=== PATIENT | female | born 1960 | race Two or more races ===

== ENCOUNTER 2017-05-31 16:14 | Emergency (ER) | payer OTHER ==
[~2017-05-31] VITALS: Ht 144.8 cm; Wt 61.2 kg
[2017-05-31 16:27] VITALS: BP 133/89
[2017-05-31] MEDS ORDERED: WART REMOVER1 EAC1 TP (17:36)
[2017-05-31 17:49] VITALS: BP 126/78
--- NOTE | 2017-06-01 09:13 | Diagnostic Imaging Report ---
Indication: PAIN, injury right fifth digit Technique: 3 views right hand Comparison: none Findings: There is degenerative narrowing of the second through fifth distal interphalangeal joints. There is mild narrowing and proliferative change of the first interphalangeal joint. There is some soft tissue swelling about the fifth digit. No acute fractures. No dislocations. There is a small erosion versus cyst in the head of the second middle phalanx. The remainder the joint spaces are preserved. Impression: No acute bony trauma Degenerative changes, as described Small bone cyst versus periarticular erosion involving the head of the second middle phalanx
--- NOTE | 2017-06-01 12:24 | Emergency Room Report ---
History of Present Illness General Chief Complaint: Pain Source: Patient Present Illness HPI The patient is a 56-year-old female presenting for right pinky pain. She states that she noticed this 2 weeks ago. She is unsure if she injured it in any way. She noticed a growth which is slightly tender. Described as a 4/10 dull ache. Does not radiate. Worse with touch. She denies any numbness or tingling. She states she tried to "pop it" yesterday but only blood came out. She denies any other symptoms Allergies: Coded Allergies: GUAIFENESIN (Verified Allergy, Unknown, 05/31/17) Patient History Past Medical History: see triage record Pertinent Family History: none Last Menstrual Period: none Now: No : 0 Para: 0 Reviewed Nursing Documentation: PMH: Agreed, PSxH: Agreed Nursing Documentation-PMH Past Medical History: No Stated History Review of Systems All Other Systems: negative except mentioned in HPI Physical Exam Vital Signs Date Time Temp Pulse Resp B/P (MAP) Pulse Ox O2 Delivery O2 Flow Rate FiO2 05/31/17 16:19 97.9 78 16 133/89 98 Room Air Sp02 EP Interpretation: reviewed, normal General Appearance: no apparent distress, alert, GCS 15, non-toxic Head: normocephalic, atraumatic Eyes: bilateral eye normal inspection, bilateral eye PERRL ENT: hearing grossly normal, normal pharynx, no angioedema, normal voice Musculoskeletal: back normal, gait/station normal, normal range of motion, non- tender Neurologic: alert, oriented x3, responsive, motor strength/tone normal, sensory intact, speech normal Psychiatric: judgement/insight normal, memory normal, mood/affect normal, no suicidal/homicidal ideation Skin: other - R 5th finger: Circular, 1cm in diameter thickened lesion. Normal color. No fluctuance. Medical Decision Making PA Attestation Dr. Terry is my supervising physician. Patient management was discussed with my supervising physician Diagnostic Impression: Primary Impression: Finger pain, right ER Course The patient is a 56-year-old female presenting for right pinky pain DDx considered but not limited to: abscess, wart, paronychia, fracture, sprain, among others PE: R 5th finger: over the DIPJ. Circular, 1cm in diameter thickened lesion. Normal color. No fluctuance. Full AROM intact. Xray of hand unremarkable for acute findings. The patient is discharged home and will followup with primary doctor. ER precautions are given Other X-Ray Diagnostic Results Other X-Ray Diagnostic Results : X-Ray ordered: R hand # of Views/Limited Vs Complete: 3 View, Complete Indication: Pain EP Interpretation: Yes PA Xray: Interpretation reviewed, by supervising MD, and agrees with findings. Interpretation: no dislocation, no soft tissue swelling, no fractures Impression: No acute disease Electronically Signed by: Radames Gomez PA-C Last Vital Signs Date Time Temp Pulse Resp B/P (MAP) Pulse Ox O2 Delivery O2 Flow Rate FiO2 05/31/17 17:49 97.9 16 126/78 98 Room Air 05/31/17 16:19 78 Status: improved Disposition: HOME, SELF-CARE Condition: Improved Scripts Salicylic Acid (WART REMOVER) 1 Each Adh..patch 1 EACH TP EVERY OTHER DAY, #40 PATCH Prov: RADAMES GOMEZ 05/31/17 Patient Instructions: [place] Additional Instructions: I discussed my findings with the patient. All questions and concerns have been answered. Treatment and medication compliance have been addressed. I advised the patient that they need to follow up with PMD in 3-5 days. Return to ED if symptoms worsen, new symptoms arise, or if needed for any reason. Patient verbalized understanding of discharge instructions. RADAMES GOMEZ Jun 01, 2017 12:24
== END 2017-05-31 17:51 | disposition home or self-care (01) ==
LOC: EMR 17:00
DX: M25.541 Pain in joints of right hand (principal); L98.8 Other specified disorders of the skin and subcutaneous tissue; Z88.8 Allergy status to other drugs, medicaments and biological substances
CPT/HCPCS: 99283

== ENCOUNTER 2017-07-04 19:53 | Emergency (ER) | payer OTHER ==
[~2017-07-04] VITALS: Ht 144.8 cm; Wt 60.3 kg
[~2017-07-04 19:53] MED LIST: WART REMOVER1 EAC1 TP
[2017-07-04 20:20] VITALS: BP 133/78
[2017-07-04] MEDS ORDERED: Lidocaine 1% Plain 30 ml INJ ONE (20:30)
[2017-07-04] MEDS ORDERED: Bacitracin Oint UD TOPIC ONE (20:30)
[2017-07-04 20:31] LABS: APPEARANCE,URINE CLEAR; KETONES,URINE NEGATIVE (NEGATIVE); LEUKOCYTE ESTERASE ,URINE NEGATIVE (NEGATIVE); NITRITE,URINE NEGATIVE (NEGATIVE); PH,URINE 7 (4.5-8.0); PROTEIN,URINE NEGATIVE (NEGATIVE); UROBILINOGEN,URINE NORMAL MG/DL (0.0-1.0)
[2017-07-04] MEDS ORDERED: BACITRACIN15 GM TOPIC (21:05)
[2017-07-04] MEDS ORDERED: CEPHALEXIN500 MG ORAL (21:05)
[2017-07-04] MEDS ORDERED: PHENAZOPYRIDIN100 MG ORAL (21:05)
[2017-07-04 21:18] VITALS: BP 121/76
--- NOTE | 2017-07-04 23:09 | Emergency Room Report ---
History of Present Illness General Chief Complaint: Female Urogenital Problems Source: Patient Present Illness HPI The patient is a 56-year-old female presenting for possible very tract infection. She states that she has had dysuria for the past 3 days. Pain is an 8/10 burning sensation. Does not radiate from vaginal area. She states that she has had UTI in the past and this feels the same. She denies other symptoms including abdominal pain, back pain, fever, chills, hematuria, increased frequency, incontinence, vaginal discharge. She is also complaining of a lump she noticed on her pinky. She was seen in this emergency department recently for the same complaint and states that the treatment did not help. She denies any pain. She denies any injury to the area. Allergies: Coded Allergies: DIPHENHYDRAMINE (Verified Allergy, Unknown, 07/04/17) GUAIFENESIN (Verified Allergy, Unknown, 05/31/17) Patient History Past Medical History: see triage record Pertinent Family History: none Last Menstrual Period: none Now: No Reviewed Nursing Documentation: PMH: Agreed, PSxH: Agreed Nursing Documentation-PMH Past Medical History: No Stated History Review of Systems All Other Systems: negative except mentioned in HPI Physical Exam Vital Signs Date Time Temp Pulse Resp B/P (MAP) Pulse Ox O2 Delivery O2 Flow Rate FiO2 07/04/17 19:59 97.7 65 18 133/78 98 07/04/17 21:18 Room Air Sp02 EP Interpretation: reviewed, normal General Appearance: no apparent distress, alert, GCS 15, non-toxic Head: normocephalic, atraumatic Eyes: bilateral eye normal inspection, bilateral eye PERRL ENT: hearing grossly normal, normal pharynx, no angioedema, normal voice Neck: full range of motion, supple/symm/no masses Gastrointestinal: normal bowel sounds, non tender, soft, non-distended, no guarding, no rebound Genitourinary: normal inspection, no CVA tenderness Musculoskeletal: back normal, gait/station normal, normal range of motion, non- tender, other - R 5th digit DIPJ has 1cm in diameter circular, fluctuant mass. Non tender Neurologic: alert, oriented x3, responsive, motor strength/tone normal, sensory intact, speech normal Psychiatric: judgement/insight normal, memory normal, mood/affect normal, no suicidal/homicidal ideation Skin: normal color, no rash, warm/dry, well hydrated Lymphatic: no adenopathy Procedures Incision and Drainage Incision and Drainage : Consent: Verbal Site: R 5th finger Blade Size: 11 I & D Procedure: betadine prep, sterile drapes applied Wound Location: upper extremity Wound's Depth, Shape: superficial, linear Wound Length (cm): 1 Wound Explored: clean Anesthesia: 1% Lidocaine Volume Anesthetic (ccs): 4 Splint Applied?: No Sling Applied?: No Patient Tolerated: Well Complications: None Medical Decision Making PA Attestation Dr. Chopra is my supervising physician. Patient management was discussed with my supervising physician Diagnostic Impression: Primary Impression: Ganglion cyst of joint of finger of right hand Additional Impression: Dysuria ER Course The patient is a 56-year-old female presenting for possible UTI as well as right fifth finger swelling Differential diagnosis considered but not limited to: UTI, vaginitis, pyelonephritis, pyelonephrosis, incontinence Ddx considered include but not limited to sprain/strain, fracture, contusion, paronychia, ganglion cyst, arthritis PE: Afebrile. NAD Abdomen is soft and nontender. No CVA tenderness R 5th digit DIPJ has 1cm in diameter circular, fluctuant mass.Nontender. No skin color changes. Betadine prep was used to clean the skin and surrounding area. One percent lidocaine without epinephrine was used for digital block. A #11 blade was used to make an incision of the lesion Once the incision was made, clear fluid was expressed with blood. The wound was then cleaned and sterile dressing applied. Urinalysis shows no signs of infection. She was told that this is most likely a cyst that will return in time. She needs to follow up with her primary doctor for further treatment and evaluation. She is given prescription for Keflex and Pyridium ER precautions are given Labs Test 07/04/17 20:05 Urine Color Pale yellow Urine Appearance Clear Urine pH 7 (4.5-8.0) Urine Specific [place] 1.005 (1.005-1.035) Urine Protein Negative (NEGATIVE) Urine Glucose (UA) Negative (NEGATIVE) Urine Ketones Negative (NEGATIVE) Urine Occult Blood Negative (NEGATIVE) Urine Nitrite Negative (NEGATIVE) Urine Bilirubin Negative (NEGATIVE) Urine Urobilinogen Normal MG/DL (0.0-1.0) Urine Leukocyte Esterase Negative (NEGATIVE) Lab Results Impression No signs of infection Last Vital Signs Date Time Temp Pulse Resp B/P (MAP) Pulse Ox O2 Delivery O2 Flow Rate FiO2 07/04/17 21:18 64 16 121/76 99 Room Air 07/04/17 19:59 97.7 Status: improved Disposition: HOME, SELF-CARE Condition: Improved Scripts Cephalexin* (KEFLEX*) 500 Mg Capsule 500 MG ORAL EVERY 12 HOURS, #14 CAP 0 Refills Prov: ROLANDO GOMEZ.A. 07/04/17 Bacitracin (Bacitracin) 28.4 Gm Oint...g. 1 APPLIC TOPIC THREE TIMES A DAY, #28 GM Prov: ROLANDO GOMEZ.A. 07/04/17 Phenazopyridine Hcl* (PYRIDIUM*) 100 Mg Tablet 100 MG ORAL THREE TIMES A DAY, #10 TAB Prov: ROLANDO GOMEZ P.A. 07/04/17 Patient Instructions: Dysuria, Ganglion Cyst Additional Instructions: I discussed my findings with the patient. All questions and concerns have been answered. Treatment and medication compliance have been addressed. I advised the patient that they need to follow up with PMD in 3-5 days. Return to ED if symptoms worsen, new symptoms arise, or if needed for any reason. Patient verbalized understanding of discharge instructions. The patient was informed that the cyst on the finger will most likely have to have surgery for long-term removal. ROLANDO GOMEZ Jul 04, 2017 23:09
== END 2017-07-04 21:20 | disposition home or self-care (01) ==
LOC: EMR 20:30
DX: R30.0 Dysuria (principal); M67.441 Ganglion, right hand; Z88.8 Allergy status to other drugs, medicaments and biological substances
CPT/HCPCS: 81003; 99284; J2001

== ENCOUNTER 2017-07-17 17:45 | Emergency (ER) | payer OTHER ==
[~2017-07-17] VITALS: Ht 149.9 cm; Wt 72.6 kg
[~2017-07-17 17:45] MED LIST changes: +BACITRACIN15 GM TOPIC; +CEPHALEXIN500 MG ORAL; +PHENAZOPYRIDIN100 MG ORAL
--- NOTE | 2017-07-17 19:26 | Emergency Room Report ---
History of Present Illness General Chief Complaint: General Complaint Source: Patient Present Illness HPI 56-year-old female presents emergency department complaining of 5/10 in severity epigastric abdominal pain that she describes as burning sensation in addition to feeling increased distention after eating, vomiting nonbloody vomitus since yesterday. Patient reports history of H. pylori and gastritis approximately 3 years ago which presented similarly. Patient also reports cough with nasal congestion x4 days. denies Dark tarry stools, or blood in the stool. Patient denies constipation or diarrhea. denies dysuria, urgency, hematuria or frequency. Denies CP, Palpitations, LOC, AMS, dizziness, Changes in Vision, Sensation, paresthesias, or a sudden severe headache. Allergies: Coded Allergies: DIPHENHYDRAMINE (Verified Allergy, Unknown, 07/04/17) GUAIFENESIN (Verified Allergy, Unknown, 05/31/17) Patient History Past Medical History: see triage record Past Surgical History: none Pertinent Family History: none Immunizations: UTD Reviewed Nursing Documentation: PMH: Agreed, PSxH: Agreed Nursing Documentation-PMH Past Medical History: No Stated History Review of Systems All Other Systems: negative except mentioned in HPI Physical Exam Vital Signs Date Time Temp Pulse Resp B/P (MAP) Pulse Ox O2 Delivery O2 Flow Rate FiO2 07/17/17 18:01 98.4 91 20 98 Room Air Sp02 EP Interpretation: reviewed, normal General Appearance: no apparent distress, alert, GCS 15, non-toxic Head: normocephalic, atraumatic Eyes: bilateral eye normal inspection, bilateral eye PERRL ENT: hearing grossly normal, normal pharynx, no angioedema, normal voice Neck: full range of motion, supple/symm/no masses Respiratory: chest non-tender, lungs clear, normal breath sounds, speaking full sentences Cardiovascular #1: regular rate, rhythm, no edema Gastrointestinal: normal bowel sounds, soft, non-distended, no guarding, no rebound, tenderness - some mild ttp to deep palpation in epigastric area. , other - some mild ttp to deep palpation in epigastric area. , Negative [place] signs, Negative MacBurney's sign, Negative Rosvigns Sign, Negative Psoas, No Peritoneal signs. Rectal: deferred Genitourinary: normal inspection, no CVA tenderness Musculoskeletal: back normal, gait/station normal, normal range of motion, non- tender Neurologic: alert, oriented x3, responsive, motor strength/tone normal, sensory intact, speech normal Skin: normal color, no rash, warm/dry, well hydrated Medical Decision Making PA Attestation Dr. Chopra is my supervising Physician whom patient management has been discussed with. Diagnostic Impression: Primary Impression: Nausea & vomiting Qualified Codes: R11.2 - Nausea with vomiting, unspecified Additional Impression: Epigastric abdominal pain ER Course 56-year-old female presents emergency department complaining of 5/10 in severity epigastric abdominal pain that she describes as burning sensation in addition to feeling increased distention after eating, vomiting nonbloody vomitus since yesterday. Patient reports history of H. pylori and gastritis approximately 3 years ago which presented similarly. Patient also reports cough with nasal congestion x4 days. denies Dark tarry stools, or blood in the stool. Patient denies constipation or diarrhea. denies dysuria, urgency, hematuria or frequency. Denies CP, Palpitations, LOC, AMS, dizziness, Changes in Vision, Sensation, paresthesias, or a sudden severe headache. Ddx considered but are not limited to GE, colitis, acute appy, SBO, gastritis, Vital signs: pt. is afebrile, H&PE are most consistent with Gastritis , no evidence to suggest acute abdomen on physical exam, no RUQ tenderness, not actively vomiting in ED. ORDERS: -None required at this time, the dx is clinical. ED INTERVENTIONS: -Zofran 4mg -Mylanta -Pepcid -Patient had improvement of symptoms upon reevaluation after above interventions. -pt able to tolerate oral fluids. d/w pt. conservative treatment, and to follow up with a primary care provider. pt given a list of primary care clinics for follow up. d/w pt. to return to the ED with worsening or new symptoms. DISCHARGE: At this time pt. is stable for d/c to home. Will provide printed patient care instructions, and any necessary prescriptions. Care plan and follow up instructions have been discussed with the patient prior to discharge. Last Vital Signs Date Time Temp Pulse Resp B/P (MAP) Pulse Ox O2 Delivery O2 Flow Rate FiO2 07/17/17 18:10 98.4 20 98 Room Air 07/17/17 18:01 91 Disposition: HOME, SELF-CARE Condition: Stable Scripts Mag Hydrox/Al Hydrox/Simeth (ALUM-MAG HYDROXIDE-SIMETH LIQ) 360 Ml Oral.susp 20 ML PO TID, #360 ML Prov: Nirmala Paulino 07/17/17 Ondansetron Odt* (ZOFRAN ODT*) 4 Mg Tab.rapdis 4 MG ORAL Q6H Y for Nausea & Vomiting, #30 TAB Prov: Nirmala Paulino. 07/17/17 Ranitidine Hcl* (ZANTAC*) 150 Mg Tablet 150 MG ORAL TWICE A DAY, #30 TAB Prov: Nirmala Paulino. 07/17/17 Patient Instructions: Abdominal Pain, Adult Additional Instructions: Take medications as directed. Follow up with a for PCP for referral to see GI SPECIALIST in 3-5 days, even if your symptoms have resolved. --Please review list of primary care clinics, if you do not already have a primary care provider Return sooner to ED if new symptoms occur, or current symptoms become worse. - Please note that this Emergency Department Report was dictated using Orthoconeframe cleaner technology software, occasionally this can lead to erroneous entry secondary to interpretation by the dictation equipment. Nirmala Paulino Jul 17, 2017 19:25
[2017-07-17] MEDS ORDERED: ZOFRAN ODT4 MG ORAL (19:27)
[2017-07-17] MEDS ORDERED: ALUM-MAG HYDRO360 ML PO (19:27)
[2017-07-17] MEDS ORDERED: RANITIDINE HCL150 MG ORAL (19:27)
[2017-07-17 19:42] VITALS: BP 129/78
== END 2017-07-17 19:42 | disposition home or self-care (01) ==
LOC: EMR 18:17
DX: R11.2 Nausea with vomiting, unspecified (principal); R10.13 Epigastric pain; R05 Cough; R09.81 Nasal congestion
CPT/HCPCS: 99283

== ENCOUNTER 2018-03-28 17:21 | Emergency (ER) | payer OTHER ==
[~2018-03-28] VITALS: Ht 144.8 cm; Wt 62.6 kg
[~2018-03-28 17:21] MED LIST changes: +ALUM-MAG HYDRO360 ML PO; +RANITIDINE HCL150 MG ORAL; +ZOFRAN ODT4 MG ORAL
[2018-03-28 17:53] VITALS: BP 129/71
--- NOTE | 2018-03-28 18:47 | Emergency Room Report ---
History of Present Illness General Chief Complaint: Pain Source: Patient Present Illness HPI 57 YO Female presents to the ED c/o left ankle sprain x 5 days, swelling intermittently. pt. reports pain is worse with walking. swelling relieved with elevation. 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 No appreciable trauma or fall. posterior lateral swelling and ttp, no erythema no fevers. pt. denies paresthesias or skin color changes. Denies hx of HTN. Allergies: Coded Allergies: DIPHENHYDRAMINE (Verified Allergy, Unknown, 07/04/17) GUAIFENESIN (Verified Allergy, Unknown, 05/31/17) Patient History Past Medical History: see triage record Past Surgical History: none Pertinent Family History: none Now: No Reviewed Nursing Documentation: PMH: Agreed; PSxH: Agreed Nursing Documentation-PMH Past Medical History: No Stated History Review of Systems All Other Systems: negative except mentioned in HPI Physical Exam Vital Signs Date Time Temp Pulse Resp B/P (MAP) Pulse Ox O2 Delivery O2 Flow Rate FiO2 03/28/18 17:36 98.4 73 20 129/71 99 Room Air 98.4 Sp02 EP Interpretation: reviewed, normal General Appearance: no apparent distress, alert, GCS 15, non-toxic Head: normocephalic, atraumatic ENT: hearing grossly normal, normal voice Neck: full range of motion Respiratory: lungs clear, normal breath sounds, speaking full sentences Cardiovascular #1: regular rate, rhythm, no edema Musculoskeletal: back normal, gait/station normal, normal range of motion, other - posterior ankle ttp, and some ttp and swelling noted on the lateral posterior aspect, no bruises, erythema or obvious deformities, no increased laxity or warmth. some pain on plantar aspect near heel. Neurologic: alert, oriented x3, responsive, motor strength/tone normal, sensory intact, speech normal, grossly normal Psychiatric: judgement/insight normal Skin: normal color, no rash, warm/dry, well hydrated Lymphatic: no adenopathy Medical Decision Making PA Attestation Dr. zhong is my supervising Physician whom patient management has been discussed with. Diagnostic Impression: Primary Impression: Ankle sprain Qualified Codes: S93.402A - Sprain of unspecified ligament of left ankle, initial encounter Additional Impression: Achilles tendinitis Qualified Codes: M76.62 - Achilles tendinitis, left leg ER Course 57 YO Female presents to the ED c/o left ankle sprain x 5 days, swelling intermittently. pt. reports pain is worse with walking. swelling relieved with elevation. 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 No appreciable trauma or fall. posterior lateral swelling and ttp, no erythema no fevers. pt. denies paresthesias or skin color changes. Denies hx of HTN. Ddx considered but are not limited to Fracture, dislocation, contusion, Sprain/ Strain/Spasm, Achilles tendinitis, plantar fasciitis, peripheral edema just to name a few Vital signs: are WNL, pt. is afebrile H&PE are most consistent with musculoskeletal injury will perform imaging - highly suspect Achilles tendinitis, overuse syndrome. There is no evidence of infectious process. ORDERS: - X-ray left ankle - negative for fx, Dislocation, or significant soft tissue injury, per preliminary read in ED, and signed by QUIRINO Paulino, my supervising physician has reviewed, and agrees with my interpretation. ED INTERVENTIONS: - Evan wrap applied by eye technician. Pt. remains neurovascularly intact. -I do not identify an emergent condition at this time. With current presentation , pt. is stable for close outpatient follow up and conservative treatment. D/ w pt. to return promptly to ED with worsening or new symptoms.- Pt. verbalizes understanding and agreement with proposed treatment plan.proposed treatment plan. DISCHARGE: At this time pt. is stable for d/c to home. Will provide printed patient care instructions, and any necessary prescriptions. Care plan and follow up instructions have been discussed with the patient prior to discharge. Other X-Ray Diagnostic Results Other X-Ray Diagnostic Results : X-Ray ordered: LEft ankle # of Views/Limited Vs Complete: 3 View Indication: Pain EP Interpretation: Yes QUIRINO Xray: Interpretation reviewed, by supervising MD, and agrees with findings. Interpretation: no dislocation, no soft tissue swelling, no fractures Impression: No acute disease Electronically Signed by: Nirmala Paulino PA-C Last Vital Signs Date Time Temp Pulse Resp B/P (MAP) Pulse Ox O2 Delivery O2 Flow Rate FiO2 03/28/18 17:53 98.4 73 20 129/71 99 Room Air 98.4 Disposition: HOME, SELF-CARE Condition: Stable Scripts Diclofenac Sodium (VOLTAREN) 100 Gm Gel..gram. 1 APPLIC TP TID, #100 GM Prov: Nirmala Paulino 03/28/18 Ibuprofen* (MOTRIN*) 600 Mg Tablet 600 MG ORAL THREE TIMES A DAY, #30 TAB 0 Refills Prov: Nirmala Paulino 03/28/18 Departure Forms: Return to Work Return to Work Date: Mar 31, 2018 Work Restrictions: No Prolonged Standing Other Restrictions: light duty, limited walking/standing. x 1 week. may return sooner if better Return to Full Activity: Apr 07, 2018 Patient Instructions: Achilles Tendinitis, Ankle Pain Additional Instructions: Take medications as directed. Follow up with a Primary Care Provider in 3-5 days, even if your symptoms have resolved. --Please review list of primary care clinics, if you do not already have a primary care provider Return sooner to ED if new symptoms occur, or current symptoms become worse. - Please note that this Emergency Department Report was dictated using Phobiouscardiac/vascular sonographer technology software, occasionally this can lead to erroneous entry secondary to interpretation by the dictation equipment. Nirmala Paulino Mar 28, 2018 18:47
[2018-03-28] MEDS ORDERED: VOLTAREN100 G1 TP (18:48)
[2018-03-28] MEDS ORDERED: IBUPROFEN600 MG ORAL (18:48)
[2018-03-28 18:54] VITALS: BP 129/71
--- NOTE | 2018-03-29 08:36 | Diagnostic Imaging Report ---
Indication: Pain Technique: 3 views of the left ankle Comparison: none Findings: There is chronic appearing irregularity of the anterior corner of the tibia on the lateral view. No acute fractures. No dislocations. The joint spaces are preserved. There are plantar and calcaneal spurs Impression: Anterior tibial irregularity, possibly on the basis of old injury or degenerative change. No acute bony trauma
== END 2018-03-28 19:30 | disposition home or self-care (01) ==
LOC: EMR 19:10
DX: S93.402A Sprain of unspecified ligament of left ankle, initial encounter (principal); X50.9XXA Other and unspecified overexertion or strenuous movements or postures, initial encounter; Y92.009 Unspecified place in unspecified non-institutional (private) residence as the place of occurrence of the external cause; M76.62 Achilles tendinitis, left leg
CPT/HCPCS: 99283

== ENCOUNTER 2018-12-10 07:56 | Emergency (ER) | payer OTHER ==
[~2018-12-10] VITALS: Ht 144.8 cm; Wt 64.4 kg
[~2018-12-10 07:56] MED LIST changes: +IBUPROFEN600 MG ORAL; +VOLTAREN100 G1 TP
--- NOTE | 2018-12-10 08:10 | NUR ---
ED Nurse Note: Pt from home came in due to left abdominal pain 10/10 that radiates to her left flank when she coughs or pain worse when bending. Denies diarrhea but with constipation. Nauseated but no active vomiting. Pt AAO x4, ambulates with steady gait, no SOB. Calm and cooperative.
[2018-12-10 08:24] VITALS: BP 173/79
--- NOTE | 2018-12-10 08:29 | Emergency Room Report ---
History of Present Illness General Chief Complaint: Abdominal Pain Source: Patient Present Illness HPI Patient presents with 3 days of left flank and upper quadrant pain that is constant. It's worsened when she coughs or laughs. She denies any fevers or chills. She feels nauseated but has had no vomiting. She's felt constipated and took herbs and other dietary aids and moved her bowels a scant amount this morning. She denies any blood. She's never had pain like this before. She rates it at 10/10 and aching and constant. The cough is been a dry cough. She has no swelling or calf pain and has no history of blood clots. She has a history of hypertension this been mild and not treated. She denies diabetes. Although has a family history but denies polyuria polydipsia. She denies sore throat. There are no rashes. Her last period was 7 years ago. She denies dysuria or hematuria. No edema or calf pain. No trauma. She has not taken any other pain medication. Allergies: Coded Allergies: GUAIFENESIN (Verified Allergy, Unknown, 05/31/17) Patient History Past Medical History: see triage record Social History: Denies: smoking, alcohol use, drug use Social History Narrative house keeper Last Menstrual Period: none Reviewed Nursing Documentation: PMH: Agreed; PSxH: Agreed Nursing Documentation-PMH Past Medical History: No Stated History Review of Systems All Other Systems: negative except mentioned in HPI Physical Exam Vital Signs Date Time Temp Pulse Resp B/P (MAP) Pulse Ox O2 Delivery O2 Flow Rate FiO2 12/10/18 08:00 98.1 65 20 138/82 (100) 98 Room Air Sp02 EP Interpretation: reviewed, normal General Appearance: well appearing, no apparent distress, GCS 15 Head: normocephalic Eyes: bilateral eye normal inspection, bilateral eye PERRL, bilateral eye EOMI ENT: moist mucus membranes Neck: supple Respiratory: lungs clear, normal breath sounds, other - Lower left lateral chest and flank pain to percussion Cardiovascular #1: regular rate, rhythm, no edema Cardiovascular #2: 2+ radial (R) Gastrointestinal: normal inspection, normal bowel sounds, non tender, no mass, non-distended Genitourinary: CVA tenderness (L) Musculoskeletal: back normal, gait/station normal, normal range of motion, no calf tenderness, Valdez's Sign negative Neurologic: alert, oriented x3, grossly normal Psychiatric: mood/affect normal Skin: normal inspection, warm/dry Medical Decision Making Diagnostic Impression: Primary Impression: Left flank pain Additional Impression: Muscle strain ER Course Patient presents with left flank pain that somewhat pleuritic with that nonproductive cough. Differential includes renal stone, I gastritis, pyelonephritis, pneumonia, pulmonary embolus, acute myocardial infarction amongst others. The patient will be evaluated with EKG, chest x-ray and CT the abdomen and pelvis. She'll be treated with IV hydration, Zofran, Toradol and morphine. Based on vital signs pulmonary embolus is less likely. EKG no injury. CXR clear. Normal labs. CT - no surgical pathology. See below. Pain is not right-sided. Pain improved 4/10. Still feels short of breath. D dimer ordered. Also albuterol ordered. Improvement with albuterol. D-dimer returns normal. Medical emergencies excluded at this time. Patient reports decreased pain. Discussed findings with the patient and most likely etiology. Also discussed observation at home. Patient stable for outpatient observation and treatment Laboratory Tests Test 12/10/18 08:30 White Blood Count 5.5 K/UL (4.8-10.8) Red Blood Count 4.86 M/UL (4.20-5.40) Hemoglobin 14.0 G/DL (12.0-16.0) Hematocrit 40.4 % (37.0-47.0) Mean Corpuscular Volume 83 FL (80-99) Mean Corpuscular Hemoglobin 28.8 PG (27.0-31.0) Mean Corpuscular Hemoglobin Concent 34.6 G/DL (32.0-36.0) Red Cell Distribution Width 12.0 % (11.6-14.8) Platelet Count 324 K/UL (150-450) Mean Platelet Volume 6.0 FL (6.5-10.1) L Neutrophils (%) (Auto) 50.6 % (45.0-75.0) Lymphocytes (%) (Auto) 39.3 % (20.0-45.0) Monocytes (%) (Auto) 8.1 % (1.0-10.0) Eosinophils (%) (Auto) 0.9 % (0.0-3.0) Basophils (%) (Auto) 1.1 % (0.0-2.0) Prothrombin Time 10.1 SEC (9.30-11.50) Prothrombin Time INR 1.0 (0.9-1.1) PTT 29 SEC (23-33) D-Dimer 0.21 mg/L FEU (0.00-0.49) Urine Color Pale yellow Urine Appearance Clear Urine pH 6.5 (4.5-8.0) Urine Specific [place] 1.010 (1.005-1.035) Urine Protein Negative (NEGATIVE) Urine Glucose (UA) Negative (NEGATIVE) Urine Ketones Negative (NEGATIVE) Urine Blood Negative (NEGATIVE) Urine Nitrite Negative (NEGATIVE) Urine Bilirubin Negative (NEGATIVE) Urine Urobilinogen Normal MG/DL (0.0-1.0) Urine Leukocyte Esterase Negative (NEGATIVE) Sodium Level 141 MMOL/L (136-145) Potassium Level 3.7 MMOL/L (3.5-5.1) Chloride Level 105 MMOL/L (98-107) Carbon Dioxide Level 28 MMOL/L (21-32) Anion Gap 8 mmol/L (5-15) Blood Urea Nitrogen 19 mg/dL (7-18) H Creatinine 0.7 MG/DL (0.55-1.30) Estimate Glomerular Filtration Rate > 60 mL/min (>60) Glucose Level 119 MG/DL (74-106) H Calcium Level 9.8 MG/DL (8.5-10.1) Total Bilirubin 0.6 MG/DL (0.2-1.0) Aspartate Amino Transferase (AST) 30 U/L (15-37) Alanine Aminotransferase (ALT) 61 U/L (12-78) Alkaline Phosphatase 98 U/L (46-116) Troponin I 0.003 ng/mL (0.000-0.056) Total Protein 7.4 G/DL (6.4-8.2) Albumin 3.9 G/DL (3.4-5.0) Globulin 3.5 g/dL Albumin/Globulin Ratio 1.1 (1.0-2.7) Lipase 137 U/L (73-393) EKG Diagnostic Results Rate: normal Rhythm: NSR ST Segments: no acute changes Rhythm Strip Diag. Results EP Interpretation: yes Rhythm: NSR, no PVC's, no ectopy Chest X-Ray Diagnostic Results Chest X-Ray Diagnostic Results : Chest X-Ray Ordered: Yes # of Views/Limited/Complete: 1 View Indication: Other EP Interpretation: Yes Interpretation: no consolidation, no effusion, no pneumothorax Impression: No acute disease Electronically Signed by: Electronically signed by Cedrick Stinson MD CT/MRI/US Diagnostic Results CT/MRI/US Diagnostic Results : Imaging Test Ordered: Abdomen pelvis Impression 1. Fatty enlarged liver. 2. Distended gallbladder. Prominent CBD measuring up to 13 mm. Prominent pancreatic duct measuring 4.9 mm. No definite pancreatic head mass, however, not excluded. Consider pancreatic protocol CT or MRI and/or MRCP. 3. Small 8mm cystic lesion at the duodenum junction of the second and third portion. Nonobstructive. 4. Normal appendix. 5. Colonic diverticulosis. Last Vital Signs Date Time Temp Pulse Resp B/P (MAP) Pulse Ox O2 Delivery O2 Flow Rate FiO2 12/10/18 14:05 98.6 76 18 113/69 98 Room Air 12/10/18 13:27 21 Status: improved Disposition: HOME, SELF-CARE Condition: Improved Scripts Albuterol Sulfate* (ALBUTEROL SULFATE MDI*) 8.5 Gm Hfa.aer.ad 2 PUFF INH Q6H, #1 INH 0 Refills Prov: Cedrick Stinson MD 12/10/18 Acetaminophen (Tylenol) 325 Mg Tablet 650 MG ORAL Q6H PRN for Prn Pain/Headache/Temp > 101, #20 TAB 0 Refills Prov: Cedrick Stinson MD 12/10/18 Promethazine HCl/Codeine (Prometh-Codein 6.25-10 mg/5 ml) 5 Ml Syrup 5 ML PO Q6HR PRN for For Cough, #60 ML Prov: Cedrick Stinson MD 12/10/18 Methocarbamol* (ROBAXIN*) 500 Mg Tablet 500 MG PO TID, #10 TAB 0 Refills Prov: Cedrick Stinson MD 12/10/18 Referrals: Anthony Baxter MD (PCP) Cedrick Stinson MD December 10, 2018 08:29
[2018-12-10] MEDS ORDERED: Ketorolac 30mg Inj IV ONE (08:30)
[2018-12-10] MEDS ORDERED: Morphine Sulfate 4mg/ml Inj (IV USE ONLY) IVP ONE (08:30)
[2018-12-10] MEDS ORDERED: Isovue-300 100ml vial INJ PRN (08:30)
--- NOTE | 2018-12-10 08:39 | NUR ---
ED Nurse Note: Collected blood/urine then sent.
--- NOTE | 2018-12-10 08:40 | NUR ---
ED Nurse Note: driver license technician at the bed side for CXR.
--- NOTE | 2018-12-10 08:45 | NUR ---
ED Nurse Note: Oral contrast taken at this time with consent signed for CT abd w/ contrast.
[2018-12-10 08:50] LABS: APPEARANCE,URINE CLEAR; BASOPHILS % (AUTO) 1.1 % (0.0-2.0); BILIRUBIN, URINE NEGATIVE (NEGATIVE); COLOR,URINE PALE YELLOW; EOSINOPHILS % (AUTO) 0.9 % (0.0-3.0); GLUCOSE, URINE (UA) NEGATIVE (NEGATIVE); HEMATOCRIT 40.4 % (37.0-47.0); KETONES,URINE NEGATIVE (NEGATIVE); LEUKOCYTE ESTERASE ,URINE NEGATIVE (NEGATIVE); LYMPHOCYTES % (AUTO) 39.3 % (20.0-45.0); MEAN CORPUSCULAR VOLUME 83 FL (80-99); MONOCYTES % (AUTO) 8.1 % (1.0-10.0); NEUTROPHILS % (AUTO) 50.6 % (45.0-75.0); NITRITE,URINE NEGATIVE (NEGATIVE); PH,URINE 6.5 (4.5-8.0); PLATELET COUNT 324 K/UL (150-450); PROTEIN,URINE NEGATIVE (NEGATIVE); RED BLOOD COUNT 4.86 M/UL (4.20-5.40); UROBILINOGEN,URINE NORMAL MG/DL (0.0-1.0); WHITE BLOOD COUNT 5.5 K/UL (4.8-10.8)
--- NOTE | 2018-12-10 08:57 | Diagnostic Imaging Report ---
EXAM: XR Chest, 1 View CLINICAL HISTORY: ABD PAIN TECHNIQUE: Frontal view of the chest. COMPARISON: No relevant prior studies available. FINDINGS: Lungs: Unremarkable. No consolidation. Pleural space: Unremarkable. No pneumothorax. Heart: Mild cardiomegaly. Mediastinum: Unremarkable. Bones/joints: Degenerative changes of the spine. IMPRESSION: No acute findings.
[2018-12-10 09:00] LABS: ANION GAP 8 mmol/L (5-15); BLOOD UREA NITROGEN 19 mg/dL (7-18); CALCIUM 9.8 MG/DL (8.5-10.1); CARBON DIOXIDE 28 MMOL/L (21-32); CHLORIDE 105 MMOL/L (98-107); CREATININE 0.7 MG/DL (0.55-1.30); POTASSIUM 3.7 MMOL/L (3.5-5.1); SODIUM 141 MMOL/L (136-145)
[2018-12-10 09:04] LABS: ALANINE AMINOTRANSFERASE 61 U/L (12-78); ALBUMIN 3.9 G/DL (3.4-5.0); ALBUMIN/GLOBULIN RATIO 1.1 (1.0-2.7); ALKALINE PHOSPHATASE 98 U/L (46-116); ASPARTATE AMINO TRANSFERASE 30 U/L (15-37); BILIRUBIN,TOTAL 0.6 MG/DL (0.2-1.0)
--- NOTE | 2018-12-10 10:20 | NUR ---
ED Nurse Note: PT TAKEN TO CT VIA [facility]. VSS
[2018-12-10 10:30] VITALS: BP 135/69
--- NOTE | 2018-12-10 10:32 | NUR ---
ED Nurse Note: PT CAME BACK FROM CT. WAITING FOR RESULTS.
--- NOTE | 2018-12-10 11:34 | Diagnostic Imaging Report ---
EXAM: CT Abdomen and Pelvis With Intravenous Contrast CLINICAL HISTORY: ABD PAIN TECHNIQUE: Axial computed tomography images of the abdomen and pelvis with intravenous contrast. CTDI is 15.7 mGy and DLP is 862 mGy-cm. One or more of the following dose reduction techniques were used: automated exposure control, adjustment of the mA and/or kV according to patient size, use of iterative reconstruction technique. COMPARISON: No relevant prior studies available. FINDINGS: Lung bases: Bibasilar lung atelectasis. Pleural space: Right lateral lower lung. Calcified pleural plaque. Mediastinum: Small hiatal hernia. ABDOMEN: Liver: Fatty enlarged liver. Small low-density lesion measuring 5 mm in the right lobe. Gallbladder and bile ducts: Distended gallbladder. Prominent CBD measuring up to 13 mm. Prominent pancreatic duct measuring 4.9 mm. No definite pancreatic mass, however, not excluded. Pancreas: See above. No inflammatory changes. Spleen: Unremarkable. No splenomegaly. Adrenals: Unremarkable. No mass. Kidneys and ureters: Unremarkable. No solid mass. No hydronephrosis. Stomach and bowel: Small 8mm cystic lesion at the duodenum junction of the second and third portion. Nonobstructive. Colonic diverticulosis. No mucosal thickening. PELVIS: Appendix: Normal appendix. Bladder: Unremarkable. No mass. Reproductive: Unremarkable as visualized. ABDOMEN and PELVIS: Intraperitoneal space: Unremarkable. No free air. No significant fluid collection. Bones/joints: Degenerative changes of the spine. No acute fracture. No dislocation. Soft tissues: Small fat-containing umbilical hernia. Vasculature: Unremarkable. No abdominal aortic aneurysm. Lymph nodes: Unremarkable. No enlarged lymph nodes. IMPRESSION: 1. Fatty enlarged liver. 2. Distended gallbladder. Prominent CBD measuring up to 13 mm. Prominent pancreatic duct measuring 4.9 mm. No definite pancreatic head mass, however, not excluded. Consider pancreatic protocol CT or MRI and/or MRCP. 3. Small 8mm cystic lesion at the duodenum junction of the second and third portion. Nonobstructive. 4. Normal appendix. 5. Colonic diverticulosis.
[2018-12-10 12:30] VITALS: BP 128/79
[2018-12-10] MEDS ORDERED: Albuterol ud Inhalation HHN ONE (12:45)
[2018-12-10] MEDS ORDERED: TYLENOL325 MG ORAL (13:47)
[2018-12-10] MEDS ORDERED: ALBUTEROL SULF8.5 GM INH (13:47)
[2018-12-10] MEDS ORDERED: PROMETH-CODEIN 65 ML PO (13:47)
[2018-12-10] MEDS ORDERED: ROBAXIN500 MG PO (13:47)
[2018-12-10 14:05] VITALS: BP 113/69
--- NOTE | 2018-12-10 14:05 | NUR ---
ER DISCHARGE NOTE: Patient is cleared to be discharged per ERMD, pt is aox4, on room air, with stable vital signs. pt was given dc and prescription instructions, pt was able to verbalize understanding, pt id band and iv site removed without complications. pt is able to ambulate with steady gait. pt took all belongings.
--- NOTE | 2018-12-11 16:03 | Cardiology Report ---
APPROVED REPORT EKG Measurement Heart [id number] ID [id number] Normal sinus rhythm Normal ECG
== END 2018-12-10 14:05 | disposition home or self-care (01) ==
LOC: EMR 08:20
DX: R10.12 Left upper quadrant pain (principal); T14.8XXA Other injury of unspecified body region, initial encounter; X58.XXXA Exposure to other specified factors, initial encounter; Y93.9 Activity, unspecified; Y92.9 Unspecified place or not applicable; I10 Essential (primary) hypertension; Z88.8 Allergy status to other drugs, medicaments and biological substances; K76.0 Fatty (change of) liver, not elsewhere classified; K57.90 Diverticulosis of intestine, part unspecified, without perforation or abscess without bleeding; K44.9 Diaphragmatic hernia without obstruction or gangrene
CPT/HCPCS: 36415; 71045; 74177; 80053; 81003; 83690; 84484; 85025; 85379; 85610; 85730; 93005; 94640; 94664; 96361; 96374; 96376; 99284; J1885; J2270; J2405; Q9967